=== PATIENT | female | born 1950 | race Caucasian/White ===

== ENCOUNTER 2017-10-20 17:24 | Emergency (ER) | payer OTHER ==
[2017-10-20 17:45] VITALS: BP 161/77; PULSE 79; TEMP 98.4; BMI 18.1
--- NOTE | 2017-10-20 17:45 | PDOC ---
Rapid Medical Evaluation Time Seen by Provider: 10/20/17 17:39 Medical Evaluation: Allergies Allergy/AdvReac Type Severity Reaction Status Date / Time No Known Allergies Allergy Verified 10/20/17 17:40 10/20/17 17:40 The patient presents with a chief complaint of: fell. Pt on blood thinners ( plavix, blood thinners). Tripped over a sewing machine on the floor. States she has pain in L 5th finger and bruise on L hip. Denies hitting her head, LOC I have performed a brief in-person evaluation of this patient; Pertinent physical exam findings: ambulatory, in no respiratory distress. VSS. TTP of L 5th finger. Bruise to L hip approximately 3cm round I have ordered the following: Wrist/hand x-ray. The patient will proceed to the ED for further evaluation.
[2017-10-20] MEDS ORDERED: IBUPROFEN 400 MG TABLET (FP) PO ONE ×2 (19:24→19:30)
--- NOTE | 2017-10-20 19:29 | PDOC ---
History of Present Illness - General Chief Complaint: Injury Stated Complaint: FALL INJURY Time Seen by Provider: 10/20/17 17:39 History Source: Patient, Family - History of Present Illness Occurred: reports: yesterday Pain Location: reports: lower extremity, upper extremity Past History - Past Medical History Allergies/Adverse Reactions: Allergies Allergy/AdvReac Type Severity Reaction Status Date / Time No Known Allergies Allergy Verified 10/20/17 17:40 Home Medications: Ambulatory Orders Clopidogrel Bisulfate [Plavix] 75 mg PO DAILY 01/27/12 Rosuvastatin Calcium [Crestor] 10 mg PO DAILY 01/27/12 Aspirin 81 mg PO ASDIR 10/20/17 Cardiac Disorders: Yes COPD: No Hypercholesterolemia: Yes - Surgical History Cardiac Surgery: Yes (CARD STENT) - Immunization History Immunization Up to Date: Yes - Suicide/Smoking/Psychosocial Hx Smoking Status: No Smoking History: Never smoked Have you smoked in the past 12 months: No Number of Cigarettes Smoked Daily: 0 Information on smoking cessation initiated: No Hx Alcohol Use: No Drug/Substance Use Hx: No Substance Use Type: None Review of Systems - Review of Systems Musculoskeletal: Yes: Joint Pain, Joint Swelling. No: Back Pain, Neck Pain Neurological: No: Headache, Dizziness *Physical Exam - Vital Signs Last Vital Signs Temp Pulse Resp BP Pulse Ox 98.4 F 79 18 161/77 100 10/20/17 17:41 10/20/17 17:41 10/20/17 17:41 10/20/17 17:41 10/20/17 17:41 - Physical Exam General Appearance: Yes: Appropriately Dressed. No: Apparent Distress HEENT: positive: Normal Voice Neck: positive: Supple Respiratory/Chest: negative: Respiratory Distress Extremity: positive: Other (minmal swelling w/ ecchymosis to PIP of L 5th digit , LROM to joint ) Integumentary: positive: Dry, Warm Neurologic: positive: Fully Oriented, Alert, Normal Mood/Affect Medical Decision Making - Medical Decision Making 10/20/17 19:23 67-year-old female, h/o HLD, CAD w/ stent, on plavix, here with left finger pain and swelling status post fall. Patient states yesterday she tripped and fell over a sewing machine, landing mostly on her left side. Did not hit head and no LOC, headache, dizziness, nausea or vomiting. States she sustained a bruises to left hip but has no hip pain, deformity and able to bear weight since injury. Denies back/neck or abd pain. Patient well-appearing and stable with swelling and ecchymosis to PIP of left fifth digit with small chip fracture seen on x-ray. Motrin given in ED, will place splint and refer to hand *DC/Admit/Observation/Transfer Diagnosis at time of Disposition: Finger fracture, left Qualifiers: Encounter type: initial encounter Finger: little finger Fracture type: closed Phalanx: proximal Fracture alignment: nondisplaced Qualified Code(s): S62.647A - Nondisplaced fracture of proximal phalanx of left little finger, initial encounter for closed fracture - Discharge Dispostion Disposition: HOME Condition at time of disposition: Good - Referrals Referrals: Dion Givens [Primary Care Provider] - Jorden Ramirez MD [Staff Physician] - - Patient Instructions Printed Discharge Instructions: DI for Finger Fracture Additional Instructions: You have a small chip fracture in your finger, which will heal on its own. It can take 1-2 weeks. Keep splint in place for comfort. You can also take Tylenol as needed. Please follow-up with Dr. Ramirez of orthopedics in one to 2 weeks - Post Discharge Activity
== END 2017-10-20 19:34 | disposition home or self-care (01) ==
LOC: JERFT 17:24
PROC: 2W3KX1Z Immobilization of Left Finger using Splint (ICD-10-PCS; principal; 2017-10-20)
DX: S62.647A Nondisplaced fracture of proximal phalanx of left little finger, initial encounter for closed fracture (principal); W18.09XA Striking against other object with subsequent fall, initial encounter; Y93.89 Activity, other specified; Y92.038 Other place in apartment as the place of occurrence of the external cause; I25.10 Atherosclerotic heart disease of native coronary artery without angina pectoris; Z95.5 Presence of coronary angioplasty implant and graft; Z79.01 Long term (current) use of anticoagulants; Z79.82 Long term (current) use of aspirin; E78.00 Pure hypercholesterolemia, unspecified
CPT/HCPCS: 29130; 73110-TC-LR-FY; 73130-TC-LT; 99281-25

== ENCOUNTER 2020-08-04 10:23 | Emergency (ER) | payer OTHER ==
[2020-08-04 10:29] VITALS: BP 173/73; PULSE 81; BMI 19.7
[2020-08-04 10:33] VITALS: TEMP 98.6
[2020-08-04] MEDS ORDERED: ACETAMINOPHEN 500 MG TABLET (FP) PO ONE (10:56)
[2020-08-04] MEDS ORDERED: ACETAMINOPHEN 500 MG TABLET (FP) ONE (10:59)
== END 2020-08-04 11:16 | disposition home or self-care (01) ==
LOC: JERFT 10:23
DX: M25.512 Pain in left shoulder (principal)
CPT/HCPCS: 99283-25